=== PATIENT | male | born 1950 | race Caucasian/White ===

== ENCOUNTER 2019-02-24 15:25 | Inpatient (IN) | payer MEDICARE, OTHER ==
[~2019-02-24] VITALS: Ht 180.3 cm; Wt 88.0 kg
[2019-02-24] MEDS ORDERED: pantoprazole 40 MG vial IV ONE (16:20)
[2019-02-24] MEDS ORDERED: normal saline 1000ML IV soln IVB ONE ×2 (16:20→17:30)
[2019-02-24 16:50] LABS: BASOPHILS % (AUTO) 0.3 % (0-1); EOSINOPHILS # (AUTO) 0.1 X10'3 (0-0.9); EOSINOPHILS % (AUTO) 0.5 % (0-6); HEMATOCRIT 39.1 % (42.0-52.0); HEMOGLOBIN 13.1 g/dl (14.0-17.9); LYMPHOCYTES # (AUTO) 1.4 X10'3 (1.1-4.8); LYMPHOCYTES % (AUTO) 11.9 % (21-51); MEAN CORPUSCULAR HEMOGLOBIN 30.6 PG (27.0-31.0); MEAN CORPUSCULAR HGB CONC 33.5 g/dL (33.0-36.5); MEAN CORPUSCULAR VOLUME 91.2 FL (78-98); MEAN PLATELET VOLUME 6.5 FL (7.4-10.4); MONOCYTES # (AUTO) 0.6 X10'3 (0-0.9); MONOCYTES % (AUTO) 5.3 % (2-12); NEUTROPHILS # (AUTO) 9.7 X10'3 (1.8-7.7); PLATELET COUNT 332 X10'3 (140-440); RED BLOOD COUNT 4.28 X10'6 (4.70-6.10); RED CELL DISTRIBUTION WIDTH 13.4 % (11.5-14.5); WHITE BLOOD COUNT 11.9 X10'3 (4.5-11.0)
[2019-02-24 17:02] LABS: PARTIAL THROMBOPLASTIN TIME 25 SECONDS (22-32)
[2019-02-24 17:03] LABS: ALANINE AMINOTRANSFERASE 84 U/L (12-78); ALBUMIN 3.6 G/DL (3.4-5.0); ALBUMIN/GLOBULIN RATIO 0.9 (1.1-1.5); ALKALINE PHOSPHATASE 99 IU/L (46-116); ANION GAP 11 (8-16); ASPARTATE AMINO TRANSFERASE 28 U/L (10-37); BILIRUBIN,TOTAL 0.7 MG/DL (0.1-1.0); BLOOD UREA NITROGEN 15 MG/DL (7-18); BUN/CREATININE RATIO 15.5 (5.4-32.0); CALCIUM 8.9 MG/DL (8.5-10.1); CHLORIDE 102 MMOL/L (99-107); CREATININE 0.97 MG/DL (0.60-1.10); GLUCOSE 120 MG/DL (70-104); POTASSIUM 4.1 MMOL/L (3.5-5.1); SODIUM 137 MMOL/L (135-145); TOTAL CARBON DIOXIDE 23.6 MMOL/L (24-32); TOTAL PROTEIN 7.7 G/DL (6.4-8.2); eGFR 77 ML/MIN
[2019-02-24 17:04] LABS: LIPASE 67 U/L (73-393); TROPONIN I < 0.04 NG/ML (0.0-0.05)
[2019-02-24] MEDS ORDERED: pantoprazole IV 80 MG in normal saline 100ml IV soln 100 ML IV ONE ×4 (17:30)
--- NOTE | 2019-02-24 17:30 | NUR ---
WILL PUT ORDERS FOR GO-[facility] PREP
[2019-02-24] MEDS ORDERED: NO HOME MEDS (17:32)
[2019-02-24] MEDS ORDERED: pantoprazole 40MG/NS 100ML BAG 100 ML IV SCH (17:40)
[2019-02-24] MEDS ORDERED: metoclopramide 5 mg/ml inj IV PRN (18:30)
[2019-02-24] MEDS ORDERED: HYDROcodone/acetaminophen 10/325mg tab PO PRN (18:30)
[2019-02-24] MEDS ORDERED: acetaminophen 325mg tablet PO PRN ×2 (18:30)
[2019-02-24] MEDS ORDERED: HYDROcodone/acetaminophen 5mg/325mg tablet PO PRN (18:30)
[2019-02-24] MEDS ORDERED: ondansetron/PF 4mg/2ml inj IV PRN (18:30)
[2019-02-24] MEDS ORDERED: HYDROmorphone 1 mg/ml syringe IV PRN (18:30)
[2019-02-24] MEDS ORDERED: LORazepam 2 mg/ml vial IV PRN (18:30)
[2019-02-24] MEDS ORDERED: potassium CL 10mEq/100ml bag 100 ML IV PRN ×2 (18:30)
[2019-02-24] MEDS ORDERED: magnesium Cl slow-release 64mg tablet PO PRN (18:30)
[2019-02-24] MEDS ORDERED: magnesium 2GM in 50ml NS 50 ML IV PRN (18:30)
[2019-02-24] MEDS ORDERED: magnesium hydroxide 30ml (MOM) UD suspension PO PRN (18:30)
[2019-02-24] MEDS ORDERED: HYDROmorphone inj. 0.5 MG/0.5 ML DISP.SYRIN IV PRN (18:30)
[2019-02-24] MEDS ORDERED: magnesium 4gm in 100ml NS 100 ML IV PRN (18:30)
[2019-02-24] MEDS ORDERED: mag hydrox/Alum hydrox/simeth 30ml oral suspension PO PRN (18:30)
[2019-02-24] MEDS ORDERED: potassium Cl 20 mEq SR tablet PO PRN ×2 (18:30)
[2019-02-24] MEDS ORDERED: PEG 3350/Na sulf,bicarb,Cl/KCl oral sol 4 liter bottle PO ONE (18:30)
[2019-02-24] MEDS ORDERED: diatr meglu/diatrizoate 30ml oral sol.-(3 dose) bottle PO SCH (18:50)
[2019-02-24 20:30] VITALS: BP 136/61
[2019-02-24] MEDS ORDERED: temazepam 15mg capsule PO PRN (21:00)
[2019-02-24 22:11] LABS: HEMATOCRIT 32.2 % (42.0-52.0); MEAN CORPUSCULAR HEMOGLOBIN 31.3 PG (27.0-31.0); MEAN CORPUSCULAR HGB CONC 34.2 g/dL (33.0-36.5); MEAN CORPUSCULAR VOLUME 91.4 FL (78-98); MEAN PLATELET VOLUME 6.4 FL (7.4-10.4); PLATELET COUNT 285 X10'3 (140-440); RED BLOOD COUNT 3.52 X10'6 (4.70-6.10); RED CELL DISTRIBUTION WIDTH 13.3 % (11.5-14.5); WHITE BLOOD COUNT 7.7 X10'3 (4.5-11.0)
[2019-02-24] MEDS: ringers solution, lacted 1,000 ML IV SCH (22:23)
[2019-02-24] MEDS: pantoprazole 40MG/NS 100ML BAG 100 ML IV SCH (23:46)
[2019-02-25] VITALS (12 sets, daily range): BP systolic 128–155; BP diastolic 67–89
[2019-02-25] MEDS: pantoprazole 40MG/NS 100ML BAG 100 ML IV SCH ×3 (01:00→11:00)
[2019-02-25 04:17] LABS: HEMATOCRIT 29.3 % (42.0-52.0); HEMOGLOBIN 10.1 g/dl (14.0-17.9); MEAN CORPUSCULAR HEMOGLOBIN 31.3 PG (27.0-31.0); MEAN CORPUSCULAR HGB CONC 34.6 g/dL (33.0-36.5); MEAN CORPUSCULAR VOLUME 90.5 FL (78-98); MEAN PLATELET VOLUME 6.3 FL (7.4-10.4); PLATELET COUNT 259 X10'3 (140-440); RED BLOOD COUNT 3.23 X10'6 (4.70-6.10); RED CELL DISTRIBUTION WIDTH 13.2 % (11.5-14.5); WHITE BLOOD COUNT 7.9 X10'3 (4.5-11.0)
[2019-02-25 04:30] LABS: ALANINE AMINOTRANSFERASE 59 U/L (12-78); ALBUMIN 2.9 G/DL (3.4-5.0); ALKALINE PHOSPHATASE 71 IU/L (46-116); ANION GAP 4 (8-16); ASPARTATE AMINO TRANSFERASE 18 U/L (10-37); BLOOD UREA NITROGEN 11 MG/DL (7-18); BUN/CREATININE RATIO 12.5 (5.4-32.0); CALCIUM 8.1 MG/DL (8.5-10.1); CHLORIDE 108 MMOL/L (99-107); CREATININE 0.88 MG/DL (0.60-1.10); GLUCOSE 115 MG/DL (70-104); MAGNESIUM 1.8 MG/DL (1.5-2.4); PHOSPHORUS 2.7 MG/DL (2.3-4.5); POTASSIUM 4.3 MMOL/L (3.5-5.1); SODIUM 140 MMOL/L (135-145); TOTAL CARBON DIOXIDE 28.3 MMOL/L (24-32); TOTAL PROTEIN 5.9 G/DL (6.4-8.2); eGFR 87 ML/MIN
[2019-02-25] MEDS: ringers solution, lacted 1,000 ML IV SCH (04:30)
[2019-02-25] MEDS ORDERED: MIDAZolam 5mg/5ml vial ONE (07:11)
[2019-02-25] MEDS ORDERED: LIDOcaine Viscous 15ml cup ONE (07:11)
[2019-02-25] MEDS ORDERED: fentaNYL/PF 50MCG/1 ML 2ML syringe ONE (07:11)
[2019-02-25] MEDS ORDERED: K and/or MAG REPLACEMENT MC SCH (08:00)
[2019-02-25 10:44] LABS: HEMATOCRIT 29.5 % (42.0-52.0); HEMOGLOBIN 10.1 g/dl (14.0-17.9); MEAN CORPUSCULAR HEMOGLOBIN 31.4 PG (27.0-31.0); MEAN CORPUSCULAR HGB CONC 34.1 g/dL (33.0-36.5); MEAN CORPUSCULAR VOLUME 91.8 FL (78-98); MEAN PLATELET VOLUME 6.4 FL (7.4-10.4); PLATELET COUNT 259 X10'3 (140-440); RED BLOOD COUNT 3.21 X10'6 (4.70-6.10); RED CELL DISTRIBUTION WIDTH 13.2 % (11.5-14.5); WHITE BLOOD COUNT 6.5 X10'3 (4.5-11.0)
[2019-02-25] MEDS ORDERED: PANT-47 PO (11:27)
--- NOTE | 2019-02-25 13:46 | NUR ---
PT DISCHARGED IN STABLE CONDITION. LEFT FACILITY IN PRIVATE VEHICLE WITH . IV DC CANULA INTACT. FOLLOW UP INSTRUCTIONS GIVEN, ALL QUESTIONS ANSWERED. ALL BELONGINGS IN HAND. Addendum: 02/25/19 at 1347 by Ирина Bay RN Amended: Links added.
[2019-02-26 14:44] LABS: OCCULT BLOOD STOOL POSITIVE (Neg)
== END 2019-02-25 13:42 | disposition home or self-care (01) | DRG 378 ==
LOC: ER 15:25 → ED HOLD 19:02 → SUR 3N 20:25
PROVIDERS: ADMIT Family Medicine; ATTEND Family Medicine
PROC: 0DB68ZX Excision of Stomach, Via Natural or Artificial Opening Endoscopic, Diagnostic (ICD-10-PCS; principal; 2019-02-25)
PROC: 0DJD8ZZ Inspection of Lower Intestinal Tract, Via Natural or Artificial Opening Endoscopic (ICD-10-PCS; 2019-02-25)
DX: K29.71 Gastritis, unspecified, with bleeding (principal); D62 Acute posthemorrhagic anemia; K57.31 Diverticulosis of large intestine without perforation or abscess with bleeding; K64.0 First degree hemorrhoids; M19.90 Unspecified osteoarthritis, unspecified site; M54.30 Sciatica, unspecified side; R55 Syncope and collapse; Z87.11 Personal history of peptic ulcer disease; Z82.3 Family history of stroke; Y92.89 Other specified places as the place of occurrence of the external cause
CPT/HCPCS: 36415; 43239; 45378; 71045; 80053; 82272; 83690; 83735; 84100; 84484; 85025; 85027; 85610; 85730; 86885; 86900; 86901; 87081; 88305; 93005; 96365; 96376; 99152; 99153; 99285; A4620; C9113; G0378; J1170; J2250; J3010; J7040; J7120; Q9963